=== PATIENT | female | born 1990 | race Two or more races ===

== ENCOUNTER 2021-11-12 10:00 | Day surgery (SDC) | payer OTHER | END 2021-11-13 00:15 | disposition home or self-care (01) | LOC: CIR.AMB 10:00 | PROVIDERS: ATTEND Specialist | DX: N72 Inflammatory disease of cervix uteri (principal); N84.0 Polyp of corpus uteri; Z86.16 Personal history of COVID-19; K21.9 Gastro-esophageal reflux disease without esophagitis ==

== ENCOUNTER 2025-02-27 11:28 | Inpatient (IN) | payer OTHER ==
[~2025-02-27] VITALS: Ht 61 cm; Wt 61.2 kg
[2025-02-27 11:46] LABS: BASO % 0.1 % (0.1-1.2); EOS # 0.15 (0.04-0.54); EOS % 1.9 % (0.7-7.0); LYMPH # 1.40 (1.18-3.74); LYMPH % 17.9 % (19.3-53.1); MEAN PLATELET VOLUME 9.10 fl (9.4-12.4); MONO # 0.79 (0.24-0.82); MONO % 10.1 % (4.7-12.5); NEUT # 5.45 (1.56-6.13); NEUT % 69.5 % (34.0-71.1); RED CELL DISTRIBUTION WIDTH 13.5 % (11.6-14.4)
[2025-02-27] MEDS ORDERED: PRENATABS RX T1 EACH PO (12:02)
[2025-02-27] MEDS ORDERED: ZOFRAN8 MG (12:02)
[2025-02-27 12:06] LABS: INR 0.94
[2025-02-27 12:18] LABS: URINE APPEARANCE Cloudy; URINE BILIRRUBIN Negative (NEGATIVE); URINE COLOR Yellow; URINE GLUCOSE Negative (NEGATIVE); URINE KETONE Negative (NEGATIVE); URINE LEUKOCYTE Negative; URINE NITRATE Negative; URINE PROTEIN Trace (NEGATIVE); URINE UROBILINOGEN 0.2 E.U./dl
[2025-02-27 12:22] LABS: URINE BACTERIA 6073.2 uL (0.0-1933); URINE EPITHELIAL CELLS 28.1 uL (0.0-38.8); URINE RBC 38.7 uL (0.0-20.8); URINE WBC 68.9 uL (0.0-23.2)
[2025-02-27 12:25] LABS: ALT/SGPT 23.0 U/L (12-78); AST/SGOT 14.0 U/L (15-37); BILIRUBIN TOTAL 0.25 mg/dL (0.3-1.2); BUN CREA RATIO 17.0 (7.0-25.0); CREATININE SERUM 0.47 mg/dL (0.55-1.02); GFR 151.69; GLOBULINA 3.4 G/DL (2.4-3.5); GLUCOSE FASTING 87.0 mg/dL (65-100); OSMOLALITY SERUM 273.0 MOSM/KG (275-295)
[2025-02-27 12:34] LABS: URINE BLOOD TRACES; URINE CAST 0.73 uL (0.0-1.40)
[2025-03-03] MEDS ORDERED: CEFAZOLIN SODIUM 1,000 MG VIAL ONE (06:18)
[2025-03-03] MEDS ORDERED: SUGAMMADEX SODIUM 200 MG/2 ML VIAL IV ONE (08:15)
[2025-03-03] MEDS ORDERED: MORPHINE SULFATE 4 MG/ML CARTRIDGE IV SCH (09:00)
[2025-03-03 10:35] VITALS: BP 113/74
[2025-03-03] MEDS ORDERED: SIMETHICONE 125 MG CAPSULE PO SCH (13:00)
[2025-03-03 16:00] VITALS: BP 112/67
[2025-03-03] MEDS ORDERED: FAMOTIDINE/PF 20 MG/2 ML VIAL IV PUSH SCH (17:00)
[2025-03-03 20:00] VITALS: BP 112/75
[2025-03-03] MEDS ORDERED: ONDANSETRON HCL 2 MG/ML VIAL IV SCH (21:00)
[2025-03-03 21:16] LABS: BASO % 0.2 % (0.1-1.2); EOS # 0.11 (0.04-0.54); EOS % 1.1 % (0.7-7.0); LYMPH # 1.23 (1.18-3.74); LYMPH % 12.0 % (19.3-53.1); MEAN PLATELET VOLUME 9.60 fl (9.4-12.4); MONO # 0.77 (0.24-0.82); MONO % 7.5 % (4.7-12.5); NEUT # 8.08 (1.56-6.13); NEUT % 78.6 % (34.0-71.1); RED CELL DISTRIBUTION WIDTH 13.5 % (11.6-14.4)
[2025-03-04 01:33] VITALS: BP 95/66
[2025-03-04 08:00] VITALS: BP 111/68
[2025-03-04] MEDS ORDERED: OxyCODONE HCL 5 MG TABLET (ROXICODONE) PO SCH (08:00)
[2025-03-04] MEDS ORDERED: DOCUSATE SODIUM 100MG CAP PO SCH (09:00)
[2025-03-04] MEDS ORDERED: SIMETHICONE125 M1 PO (11:03)
[2025-03-04] MEDS ORDERED: COLACE100 MG PO (11:03)
[2025-03-04] MEDS ORDERED: TRAM1TAB98 PO (11:05)
== END 2025-03-04 11:55 | disposition home or self-care (01) | DRG 819 ==
LOC: OB/GYN 03-03 07:00 → O/R 03-03 09:22 → OB/GYN 03-03 09:23 → CIR.AMB 03-03 10:37 → EDSTATUS 03-03 11:04 → OB/GYN 03-03 11:11
PROVIDERS: ADMIT Specialist; ATTEND Specialist
PROC: 0UT00ZZ Resection of Right Ovary, Open Approach (ICD-10-PCS; 2025-03-03)
PROC: 0UT50ZZ Resection of Right Fallopian Tube, Open Approach (ICD-10-PCS; principal; 2025-03-03 07:00)
DX: O34.82 Maternal care for other abnormalities of pelvic organs, second trimester (principal); D27.0 Benign neoplasm of right ovary; Z3A.14 14 weeks gestation of pregnancy; N83.11 Corpus luteum cyst of right ovary